=== PATIENT | male | born 1985 ===

== ENCOUNTER 2022-02-21 20:18 | Emergency (ER) | payer BC ==
[2022-02-21] MEDS ORDERED: Ibuprofen 600 MG Tab PO ONE (20:47)
[2022-02-21] MEDS ORDERED: Cephalexin 500 MG Cap PO ONE (20:47)
[2022-02-21] MEDS ORDERED: Acetaminophen 325 MG Tab PO ONE (20:57)
[2022-02-21 21:17] LABS: CORONAVIRUS COVID-19 NAA NEGATIVE (NEGATIVE); INFLUENZA A NAA NEGATIVE (NEGATIVE); INFLUENZA B NAA NEGATIVE (NEGATIVE)
== END 2022-02-21 21:49 | disposition home or self-care (01) ==
LOC: MW.ED 20:18
DX: J32.9 Chronic sinusitis, unspecified (principal); K04.7 Periapical abscess without sinus; Z88.2 Allergy status to sulfonamides; Z20.822 Contact with and (suspected) exposure to COVID-19
CPT/HCPCS: 0240U; 99283; A9270